=== PATIENT | male | born 1965 ===

== ENCOUNTER 2021-12-26 16:22 | Emergency (ER) | payer SELFPAY ==
[~2021-12-26] VITALS: Ht 170.2 cm; Wt 75.8 kg
[2021-12-26 17:10] VITALS: BP 122/87
[2021-12-26 18:33] LABS: ALANINE AMINOTRANSFERASE 112 U/L (12-78); ALBUMIN 2.7 G/DL (3.4-5.0); ALBUMIN/GLOBULIN RATIO 0.4 (1.1-1.5); ALKALINE PHOSPHATASE 130 IU/L (46-116); ANION GAP 21 (8-16); ASPARTATE AMINO TRANSFERASE 110 U/L (10-37); BILIRUBIN,TOTAL 1.1 MG/DL (0.1-1.0); BLOOD UREA NITROGEN 129 MG/DL (7-18); BUN/CREATININE RATIO 15.6 (5.4-32.0); CHLORIDE 93 MMOL/L (99-107); CREATININE 8.27 MG/DL (0.60-1.10); GLUCOSE 107 MG/DL (70-104); SODIUM 129 MMOL/L (135-145); TOTAL CARBON DIOXIDE 15.5 MMOL/L (24-32); TOTAL PROTEIN 8.8 G/DL (6.4-8.2); eGFR 7 ML/MIN
[2021-12-26 18:42] LABS: POTASSIUM 4.4 MMOL/L (3.5-5.1)
--- NOTE | 2021-12-26 19:47 | NUR ---
pt not in lobby. Was going to call the pts via telephone however, he has no number on file.
== END 2021-12-26 20:39 | disposition left against medical advice (07) ==
LOC: ER 16:23
DX: R53.1 Weakness (principal); Z53.21 Procedure and treatment not carried out due to patient leaving prior to being seen by health care provider
CPT/HCPCS: 36415; 71045; 80053; 83605; 84145; 87040